=== PATIENT | female | born 1980 | race Two or more races ===

== ENCOUNTER 2018-01-26 13:16 | Emergency (ER) | payer OTHER ==
[~2018-01-26] VITALS: Ht 162.6 cm; Wt 54.0 kg
[2018-01-26] MEDS ORDERED: PRENATAL + DHA1 EACH (14:00)
== END 2018-01-26 21:38 | disposition home or self-care (01) ==
LOC: ER 13:16
DX: O26.892 Other specified pregnancy related conditions, second trimester (principal); R10.13 Epigastric pain; Z34.02 Encounter for supervision of normal first pregnancy, second trimester

== ENCOUNTER 2018-03-07 11:14 | Inpatient (IN) | payer OTHER ==
[~2018-03-07] VITALS: Ht 162.6 cm; Wt 55.3 kg
[~2018-03-07 11:14] MED LIST: PRENATAL + DHA1 EACH
[2018-03-07] MEDS ORDERED: PRENATAL TABLE1 EAC2 PO (11:31)
[2018-03-16] MEDS ORDERED: NIFEDIPINE ER30 MG PO (09:01)
[2018-03-16] MEDS ORDERED: HYDROXYZINE PAM50 MG PO (09:01)
== END 2018-03-16 10:11 | disposition home or self-care (01) | DRG 780 ==
LOC: OBS/DEL 11:14 → OB/GYN 03-08 15:27 → LDR 03-08 15:27 → OB/GYN 03-08 17:24
PROC: 4A1HXCZ Monitoring of Products of Conception, Cardiac Rate, External Approach (ICD-10-PCS; principal; 2018-03-08)
DX: O47.02 False labor before 37 completed weeks of gestation, second trimester (principal)

== ENCOUNTER 2018-06-27 21:36 | Outpatient (CLI) | payer OTHER ==
[~2018-06-27 21:36] MED LIST changes: +HYDROXYZINE PAM50 MG PO; +NIFEDIPINE ER30 MG PO; +PRENATAL TABLE1 EAC2 PO
[2018-06-27] MEDS ORDERED: PRENATAL 19 TA1 EACH PO (22:29)
== END 2018-06-28 13:00 | disposition home or self-care (01) ==
LOC: OBS/DEL 21:36
DX: O24.410 Gestational diabetes mellitus in pregnancy, diet controlled (principal); O47.1 False labor at or after 37 completed weeks of gestation; O63.0 Prolonged first stage (of labor); Z34.03 Encounter for supervision of normal first pregnancy, third trimester

== ENCOUNTER 2018-07-06 15:35 | Inpatient (IN) | payer OTHER ==
[~2018-07-06] VITALS: Ht 165.1 cm; Wt 57.2 kg
[~2018-07-06 15:35] MED LIST changes: +PRENATAL 19 TA1 EACH PO
== END 2018-07-09 14:05 | DRG 775 ==
LOC: OBS/DEL 15:35 → LDR 07-07 10:22 → OBS/DEL 07-07 10:22 → SURG-SUITE 07-07 17:35
PROC: 10E0XZZ Delivery of Products of Conception, External Approach (ICD-10-PCS; principal; 2018-07-07)
PROC: 4A1HXCZ Monitoring of Products of Conception, Cardiac Rate, External Approach (ICD-10-PCS; 2018-07-07)
DX: O24.410 Gestational diabetes mellitus in pregnancy, diet controlled (principal); Z3A.40 40 weeks gestation of pregnancy; Z37.0 Single live birth